=== PATIENT | male | born 1955 | race Caucasian/White ===

== ENCOUNTER → 2021-02-14 09:12 | Outpatient (REF) | payer MEDICARE, MEDICAID, SELFPAY ==
--- NOTE | 2021-02-14 09:21 | CA_ITS ---
Acquisition Time: 2021-02-14 09:31:38 Total Exercise Time: 00:09:00 Test Indications: SOB Medications: Protocol: SHEREEN Max HR: 141 BPM 92% of Pred: 153 BPM Max BP: 226/090 mmHG Max Work Load: 10.1 METS Exercise stress test with exerise 9 min of Shereen protocol, with mild sob, no chest discomfort, with isolated PAC and one PVC with exercise and an 8 beat atrial tachycardia in early recovery, with BP 164/84 at baseline and rise to 226/90 with exercise, without EKG changes meeting criteria for ischemia. In recovery his BP returned to 148/92 by 6 min recovery. Test reviewed with Dr Olguin Referred By: John Powell Overread By: KAT DE LA PAZ
== END ==
LOC: HO.CARD 09:12
PROVIDERS: PCP Internal Medicine; Visit Provider Internal Medicine Cardiovascular Disease
DX: R06.02 Shortness of breath (principal)
CPT/HCPCS: 93017